=== PATIENT | female | born 1975 | race Hispanic/Latino ===

== ENCOUNTER 2025-01-13 04:15 | Inpatient (IN) | payer OTHER ==
[~2025-01-13] VITALS: Ht 157.5 cm; Wt 68.0 kg
[2025-01-13] VITALS (9 sets, daily range): BP systolic 136–160; BP diastolic 83–93; PULSE 66–90; RESP 16–20; TEMP 97.5–98.3; O2SAT 98–100
[2025-01-13] MEDS ORDERED: IOPAMIDOL 370 MG/ML 100 ML INFUS..BTL INJ ONE (04:57)
[2025-01-13] MEDS: KETOROLAC TROMETHAMINE 30 MG/ML VIAL IV STA (05:04)
[2025-01-13] MEDS: SODIUM CHLORIDE 0.9% 1000ML 1,000 ML IV SCH ×2 (05:05→10:02)
[2025-01-13] MEDS: TAMSULOSIN HCL 0.4 MG CAP PO SCH (06:42)
[2025-01-13] MEDS ORDERED: ONDANSETRON HCL INJ 2MG/ML 2ML 2 MG/ML VIAL IV PRN ×2 (07:00→11:30)
[2025-01-13] MEDS ORDERED: SODIUM CHLORIDE 0.9% 1000ML 1,000 ML IV SCH (07:00)
[2025-01-13] MEDS ORDERED: KETOROLAC TROMETHAMINE 30 MG/ML VIAL IV PRN (07:00)
[2025-01-13] MEDS ORDERED: DEXTROSE 50% SYRINGE 50 ML IV PRN ×2 (07:30→11:30)
[2025-01-13] MEDS: INSULIN LISPRO 100 UNIT/1 ML 3ML VIAL SQ SCH (07:30)
[2025-01-13] MEDS ORDERED: LOSARTAN POTAS100 MG PO (09:28)
[2025-01-13] MEDS ORDERED: ALTOPREV40 MG PO (09:32)
[2025-01-13] MEDS ORDERED: METFORMIN HCL500 MG PO (09:32)
[2025-01-13] MEDS ORDERED: MOUNJARO2.5 MG/0.5 (09:33)
[2025-01-13] MEDS ORDERED: POTASSIUM CHLORIDE 20 MEQ TAB CR PO PRN (11:30)
[2025-01-13] MEDS ORDERED: BENZONATATE 100 MG CAP PO PRN (11:30)
[2025-01-13] MEDS ORDERED: HYDRALAZINE HCL 20 MG/ML VIAL IV PRN (11:30)
[2025-01-13] MEDS ORDERED: DIPHENHYDRAMINE HCL 25 MG CAP PO PRN (11:30)
[2025-01-13] MEDS ORDERED: LIDOCAINE 4% PATCH TP PRN (11:30)
[2025-01-13] MEDS ORDERED: SIMETHICONE 80 MG CHEW PO PRN (11:30)
[2025-01-13] MEDS ORDERED: ALBUTEROL/IPRATROPIUM 3 ML NEB NEB PRN (11:30)
[2025-01-13] MEDS ORDERED: ACETAMINOPHEN 325 MG TAB PO PRN (11:30)
[2025-01-13] MEDS ORDERED: DOCUSATE SODIUM 100 MG CAP PO PRN (11:30)
[2025-01-13] MEDS: ENOXAPARIN SOD INJ 40 MG/0.4 ML SYR SC SCH (16:16)
[2025-01-13] MEDS ORDERED: MELATONIN 5 MG TABLET PO PRN (21:00)
[2025-01-14 03:24] VITALS: BP 137/93; PULSE 71; RESP 17; TEMP 98.2; O2SAT 98
[2025-01-14] MEDS: PANTOPRAZOLE SOD 40 MG TABEC PO SCH (05:34)
[2025-01-14 05:39] LABS: BASOPHILS % 0.5 % (0.0-1.0); EOSINOPHILS # (AUTO) 0.1 (0.0-0.4); EOSINOPHILS % 1.7 % (0.0-6.0); HEMATOCRIT 32.1 % (34.2-44.1); HEMOGLOBIN 10.7 g/dL (12.0-16.0); LYMPHOCYTES # (AUTO) 2.3 (1.0-3.2); LYMPHOCYTES % 37.8 % (18.0-39.1); MEAN CORPUSCULAR HEMOGLOBIN 30.5 pg (28-32); MEAN CORPUSCULAR HGB CONC 33.3 g/dL (31-35); MEAN CORPUSCULAR VOLUME 91.5 fL (81-99); MONOCYTES # (AUTO) 0.4 (0.2-0.8); MONOCYTES % 6.9 % (4.4-11.3); NEUTROPHILS # (AUTO) 3.2 (2.1-6.9); NEUTROPHILS % 52.9 % (38.7-80.0); PLATELET COUNT 296 x10e3/uL (140-360); RED BLOOD COUNT 3.51 x10e6/uL (3.6-5.1); WHITE BLOOD COUNT 5.95 x10e3/uL (4.8-10.8)
[2025-01-14 06:03] LABS: ANION GAP 10.5 mmol/L (8-16); CALCIUM 8.5 mg/dL (8.4-10.2); CREATININE, SERUM 0.67 mg/dL (0.57-1.11); POTASSIUM 3.5 mmol/L (3.5-5.1)
[2025-01-14 06:21] VITALS: PULSE 82; RESP 22; O2SAT 97
[2025-01-14 08:00] VITALS: BP 142/88; PULSE 66; RESP 17; TEMP 98.2; O2SAT 98
[2025-01-14] MEDS: NON-FORMULARY MEDICATION (Lovastatin (Altoprev) 20 MG) PO SCH (08:29)
[2025-01-14] MEDS: LOSARTAN POTASSIUM 100 MG TAB PO SCH (08:30)
[2025-01-14] MEDS: TAMSULOSIN HCL 0.4 MG CAP PO SCH (08:30)
[2025-01-14 12:00] VITALS: BP 141/95; PULSE 69; RESP 17; TEMP 98.1; O2SAT 99
[2025-01-14] MEDS ORDERED: LIDOCAINE HCL 2% LOCAL INJ 5 ML SDV VIAL INJ ONE (13:06)
[2025-01-14] MEDS ORDERED: FENTANYL CITRATE/PF 100MCG/2 ML INJ ONE ×2 (13:07→14:12)
[2025-01-14] MEDS ORDERED: PROPOFOL IV EMULSION 10 MG/ML 20 ML VIAL ONE (13:08)
[2025-01-14] MEDS ORDERED: ROCURONIUM BROMIDE 1 ML IV ONE (13:44)
[2025-01-14] MEDS ORDERED: SUCCINYLCHOLINE CHLORIDE 20 MG/ML 10ML VIAL ONE (13:44)
[2025-01-14] MEDS ORDERED: DEXAMETHASONE SOD PHOS INJ 4 MG/ML SDV ONE (14:19)
[2025-01-14] MEDS ORDERED: ONDANSETRON HCL INJ 2MG/ML 2ML 2 MG/ML VIAL ONE (14:19)
[2025-01-14 17:07] VITALS: BP 146/85; PULSE 62; RESP 16; TEMP 97.7; O2SAT 100
[2025-01-14] MEDS: PHENAZOPYRIDINE HCL 100 MG TAB PO PRN (18:17)
[2025-01-14 20:00] VITALS: BP 139/92; PULSE 68; RESP 17; TEMP 98.3; O2SAT 100
[2025-01-15] VITALS: BP 130/87; PULSE 66; RESP 17; TEMP 97.5; O2SAT 100
[2025-01-15 04:00] VITALS: BP 124/86; PULSE 76; RESP 17; TEMP 97.7; O2SAT 98
[2025-01-15 05:04] LABS: HEMATOCRIT 31.2 % (34.2-44.1); HEMOGLOBIN 10.4 g/dL (12.0-16.0)
[2025-01-15 05:51] LABS: ANION GAP 11.8 mmol/L (8-16); CALCIUM 7.9 mg/dL (8.4-10.2); CREATININE, SERUM 0.67 mg/dL (0.57-1.11); POTASSIUM 3.8 mmol/L (3.5-5.1)
[2025-01-15] MEDS: SODIUM CHLORIDE 0.9% 1000ML 1,000 ML IV SCH (07:58)
[2025-01-15] MEDS: SOLIFENACIN SUCCINATE 5 MG TAB PO SCH (07:59)
[2025-01-15 08:14] VITALS: BP 137/90; PULSE 78; RESP 16; TEMP 98; O2SAT 99
[2025-01-15 08:15] VITALS: BP 137/90; PULSE 78; RESP 16; TEMP 98; O2SAT 99
[2025-01-15 09:05] VITALS: PULSE 76; RESP 18; O2SAT 98
[2025-01-15 11:12] LABS: CALCIUM 8.5 mg/dL (8.7-10.2)
== END 2025-01-15 14:45 | disposition home or self-care (01) | DRG 661 ==
LOC: FSED 04:41 → ERHOLD 07:07 → MED/SURG 08:56
PROVIDERS: ADMIT Internal Medicine; ATTEND Internal Medicine
PROC: BT161ZZ Fluoroscopy of Right Ureter using Low Osmolar Contrast (ICD-10-PCS; 2025-01-14)
PROC: BT171ZZ Fluoroscopy of Left Ureter using Low Osmolar Contrast (ICD-10-PCS; 2025-01-14)
PROC: 0UJH7ZZ Inspection of Vagina and Cul-de-sac, Via Natural or Artificial Opening (ICD-10-PCS; 2025-01-14)
PROC: 0T768DZ Dilation of Right Ureter with Intraluminal Device, Via Natural or Artificial Opening Endoscopic (ICD-10-PCS; principal; 2025-01-14 13:59)
PROC: 0TC68ZZ Extirpation of Matter from Right Ureter, Via Natural or Artificial Opening Endoscopic (ICD-10-PCS; 2025-01-14 13:59)
DX: N13.2 Hydronephrosis with renal and ureteral calculous obstruction (principal); E78.5 Hyperlipidemia, unspecified; E11.9 Type 2 diabetes mellitus without complications; I10 Essential (primary) hypertension; N23 Unspecified renal colic; R31.29 Other microscopic hematuria; D64.9 Anemia, unspecified; Z79.85 Long-term (current) use of injectable non-insulin antidiabetic drugs; Z79.84 Long term (current) use of oral hypoglycemic drugs; Z90.49 Acquired absence of other specified parts of digestive tract; Z87.440 Personal history of urinary (tract) infections; Z88.8 Allergy status to other drugs, medicaments and biological substances; E66.9 Obesity, unspecified; Z68.27 Body mass index [BMI] 27.0-27.9, adult; N81.10 Cystocele, unspecified; N81.6 Rectocele; N95.2 Postmenopausal atrophic vaginitis
CPT/HCPCS: 36415; 74177; 74420; 80048; 80076; 81003; 81025; 82948; 83970; 84550; 85014; 85018; 85025; 87040; 87086; 88300; 94799; 99284; C1758; C1769; C2617; J0330; J0696; J1100; J1650; J1885; J2003; J2405; J2470; J7030; Q9967